=== PATIENT | female | born 1940 | race Caucasian/White ===

== ENCOUNTER 2016-11-27 08:21 | Inpatient (IN) | payer MEDICARE, BC ==
[~2016-11-27] VITALS: Ht 165.1 cm; Wt 59.7 kg
--- NOTE | ~2016-11-27 | FD ---
ADMIT: 11/27/2016 RM/LOC: 426 [facility] MR#: [id number] [address] [address] HAO OSORIO [address] [place] [id number] Final Diagnosis SEX: F AGE: 76 : 1940 ADMISSION DATE: 11/27/2016 DISCHARGE DATE: 11/28/2016 Looks like she was inpatient November 27 to November 28. FINAL DIAGNOSES: 1. Acute vasovagal syncope. 2. Sinus bradycardia. Kishor Mas MD/ keyon JOB #: [id number] CC: Kishor Mas MD, Attending Physician Kishor Mas MD, Family Physician
--- NOTE | ~2016-11-27 | ECH ---
Transthoracic Echocardiography Report (TTE) Demographics Patient Name HAO OSORIO Date of Study 11/27/2016 Patient Number [id number] Visit Number [id number] Date of 1940 Room Number 426 Accession Number [id number] Gender Female Age 76 year(s) Referring Tg Cherry MD Youth Director Tosin Allan [facility] Physician Physician Interpreting Hermes Chang Customer Sales Distributor Physician Supervising Ordering Physician Hermes Chang MD/CARTER DAVISON Nurse Stress Chrome Tanning Drum Operator Conclusions Summary Technically fair exam. The estimated left ventricular ejection fraction is 55%. Mild left ventricular hypertrophy. Diastolic assessment reveals Grade I diastolic dysfunction. No significant valvular abnormalities. Procedure Type of Study TTE procedure:Echo Complete SF. Procedure Date Date: 11/27/2016 Start: 03:04 PM Technical Quality: Adequate visualization Indications:Symptomatic Bradycardia and Syncope. Appropriate Use Criteria: 9 Height: 65 inches Weight: 132 pounds BSA: 1.66 m Rhythm: Sinus bradycardia HR: 43 bpm BP: 155/62 mmHg M-Mode/2D Measurements LV Diastolic Dimension: 3.76 cm LV Systolic Dimension: 1.91 cm LV Septum Diastolic: 1.11 cm LV PW Diastolic: 1 cm AO Root Dimension: 2.28 cm Cardiac Output: 2.32 l/min LA Dimension: 3.16 cm Cardiac Index: 1.4 l/min*m RV Diastolic Dimension: 3 cm LA volume index: 29 ml/m LVOT: 1.75 cm LVOT VTI: 22.46 cm RV Base: 3.68 cm LV Stroke volume: 54 ml RV Mid: 2.1 cm LV Stroke volume index: 32.53 ml/m RV Length: 5.19 cm TAPSE: 2.6 cm Doppler Measurements AV Mean Gradient: 3.38 mmHg MV Peak E-Wave: 0.74 m/s LVOT Peak Velocity: 0.82 m/s MV Peak A-Wave: 0.88 m/s AV Area (Continuity):1.81 cm MV P1/2t: 72.4 msec TR Velocity:2.27 m/s TR Gradient:20.61 mmHg MV Deceleration Time: 249.5 msec Estimated RAP:3 mmHg MV Area (PHT): 3.04 cm Estimated RVSP: 24 mmHg PV Peak Velocity: 0.78 m/s PV Peak Gradient: 2.4 mmHg Estimated PASP: 23.61 mmHg RA Area: 15.02 cm Findings Left Ventricle The left ventricle is normal in size . Mild left ventricular hypertrophy. Diastolic assessment reveals Grade I diastolic dysfunction. Right Ventricle Normal right ventricle structure and function. Left Atrium Normal left atrial size. Right Atrium Normal right atrial size. Mitral Valve Mild thickening of the mitral valve leaflets. Trivial mitral regurgitation by color Doppler. Aortic Valve The aortic valve is mildly sclerotic. Tricuspid Valve Normal appearing tricuspid valve. Trivial tricuspid regurgitation by color Doppler. Estimated pulmonary pressures within normal limits. Pulmonic Valve Normal pulmonic valve structure and function. Pericardial Effusion No evidence of pericardial effusion. Miscellaneous Visualized portions of the aortic root and ascending aorta appear normal in size. Pleural Effusion No evidence of pleural effusion. Contractility Score LV regional wall motion:(0-Non visualized 1-Normal 2-Hypokinesis 3-Akinesis 4-Dyskinesis 5-Aneurysm) Signature
--- NOTE | 2016-11-27 18:19 | HP ---
ADMIT: 11/27/2016 RM/LOC: 426 [facility] MR#: [id number] [address] [address] HAO OSORIO [address] [place] [address] History and Physical SEX: F AGE: 76 : 1940 DATE OF SERVICE: 11/27/2016 CHIEF COMPLAINT AND HISTORY OF PRESENT ILLNESS: Hao is a 76-year-old female in good health, who went to druze this morning. [facility] and then she prayed the Rosary with her group afterward, during this period, she felt hot and then eventually had a syncopal spell. I do not have any witnesses at the scene. It is unclear exactly how long she was out. She thinks it was probably just a minute or two. No seizure activity was reported, and this is first she has ever had a syncopal spell. She says, she felt fine yesterday and this morning when she got up, although for some reason, she did not eat breakfast. She also felt a little bit of tingling in her left arm intermittently, mostly when she lays on the arm over the last couple days, but none currently. Once again, she was alert and coherent when the ambulance came to take her to the hospital and has been since she got to the hospital. Dr. Mi evaluated her with CT of the head, and various laboratory studies, 12-lead EKG among others. She did have sinus bradycardia as low as 40s on her EKG and monitor, but otherwise no significant changes on her EKG. She was not in heart block. Orthostatics were okay. She was treated with some aspirin in the Emergency Department, and I was called to see her. Once again, she has never had syncope before. No cardiac history either. PAST MEDICAL HISTORY: Chronic problems include dyslipidemia for which she has been on Lipitor for several months. No cardiac history. No hypertension history. No stroke history. Also, history of osteopenia. SOCIAL HISTORY: She is . Retired. Accompanied by her and her daughter. She does not smoke. Alcohol intake is minimal to none. FAMILY HISTORY: Her mother at an elderly age presumably of pneumonia. No known family history of cardiac issues. ALLERGIES INTOLERANCES: 1. Bactrim causes intestinal disturbance. 2. Cipro causes intestinal disturbances. MEDICATIONS: She takes various ulpa-qyf-dnsgeyi supplements including; 1. Calcium. 2. Vitamin C. 3. Vitamin E. 4. Vitamin B. 5. Ferrous sulfate. 6. Fish oil. 7. Flaxseed oil. 8. Glucosamine. 9. Lutein. 10.Magnesium. 11.Finally, she is on Lipitor once a day. 12.Lastly, she got an recent eye drops from Dr. Torres. She is vague on the details. She has never had a diagnosis of glaucoma. We are going to ADMIT: 11/27/2016 RM/LOC: 426 [facility] MR#: [id number] [address] [place] [id number] HAO OSORIO [address] [place] [address] History and Physical SEX: F AGE: 76 : 1940 check and see if that eye drop has any beta-anita medication in it. REVIEW OF SYSTEMS: CONSTITUTIONAL: No fever, no chills. NEURO: No other focal neurologic symptoms other than those mentioned. PSYCH: Negative. CV: No chest pain. RESPIRATORY: Not short of breath or coughing. ENT: No acute ear, nose, or throat complaints. EYES: Some type of visual difficulties. PHYSICAL EXAMINATION: GENERAL: She is comfortable in the [facility] where we examined her. Appears in no distress. She is alert and oriented in no distress. VITAL SIGNS: Most recent blood pressure 143/71, O2 saturation 95%, respirations 16, heart rate vital shows 62, I then watched in the monitor and it varies from 45 up to 60. We did orthostatic vital signs and they were not significantly different. She has been afebrile as well. ENT: TMs are clear. Hearing normal. Oral mucous membranes are moist. No oral lesions noted. No nasal discharge noted. She has dentures. NECK: No masses or tenderness or enlarged thyroid or carotid bruits. HEART: Regular rhythm without murmur or gallop. LUNGS: Clear anterior and posterior. ABDOMEN: Nontender. No masses felt. PELVIC, RECTAL, AND BREAST: Exams not performed. BACK: Nontender to exam. EXTREMITIES: Upper extremities, normal appearance. Lower extremities also grossly normal without edema, and I can feel good pulses in her feet. NEURO: No focal loss of strength in arms legs or face. She is not aphasic. She is not dysarthric. No subjective sensory issues at this time. She is globally alert and oriented. IMPRESSION: Syncope. DISCUSSION: I do not feel comfortable sending her home. We will admit her to telemetry under observation. Encouraged to do regular activities to see if her heart rate increase. I have taken liberty of asking Cardiology to review the case and ordering a transthoracic echocardiogram. Uncertain at this point the significance of the bradycardia. She is not in heart block, so this still all could have been a simple vasovagal faint, and discussed that with Hao and her family. Kishor Mas MD/ keyon JOB #: [id number] CC: Kishor Mas, Attending Physician ADMIT: 11/27/2016 RM/LOC: 426 [facility] MR#: [id number] [address] [place] [phone] HAO OSORIO [address] [place] [address] History and Physical SEX: F AGE: 76 : 1940 [facility], Family Physician
--- NOTE | 2016-11-28 08:10 | ER ---
ADMIT: 11/27/2016 RM/LOC: ER [facility] MR#: [id number] [address] [address] HAO OSORIO [address] [place] [address] Emergency Room Report SEX: F AGE: 76 : 1940 DATE: 11/27/2016 ADDENDUM: See T-sheet for complete H and P. The patient is a 76-year-old female, who comes in by EMS after she had a syncopal episode while at [employer]. She does not remember the event and bystanders apparently report that she passed out for several seconds. She did not note any seizure activity. She has no history of syncopal episodes or seizures in the past. She states prior to passing out, she did notice she felt little flushed. She otherwise felt fine this morning other than some slight tingling/numbness sensation in her left arm, which she states she thought was from lying on her arm this morning in bed. I worked her up in the ER, and we had a normal head CT. CBC showed a white count of 3.8 with platelets of 137. Chemistries are normal. Troponin was normal. An EKG did show sinus bradycardia otherwise unremarkable. HOSPITAL COURSE: We checked orthostatics and they were fine and urinalysis was fine. Later in her stay, she did state that she might have some slight sensation of tingling or heaviness in her left arm and a funny sensation left side of her head. She was given aspirin in the emergency department and at this point, I am uncomfortable discharging the patient home with her bradycardia, which could have been the cause for syncopal episode these strange paresthesias in the left side of her body. I spoke to Dr. Mas who is her primary care physician, who will be seeing the patient in the ER and admitting her for further workup. DIAGNOSES: She is admitted in stable condition with diagnoses of: 1. Syncopal episode. 2. Symptomatic bradycardia. 3. Left-sided paresthesias. Aramis Mi MD/ keyon JOB #: [id number] CC: Aramis Mi MD, Attending Physician UNKNOWN, Family Physician
[2016-11-28] MEDS ORDERED: LIPITOR DPS10 MG PO (19:59)
[2016-11-28] MEDS ORDERED: MAGNESIUM250 MG PO (19:59)
[2016-11-28] MEDS ORDERED: OMEGA-3 DPS1000 MG PO (19:59)
[2016-11-28] MEDS ORDERED: CALTRATE-600 D600 MG PO (19:59)
[2016-11-28] MEDS ORDERED: ASCORBIC ACID500 MG PO (19:59)
[2016-11-28] MEDS ORDERED: FEOSOL-DPS325 MG PO (20:00)
[2016-11-28] MEDS ORDERED: VITAMIN B-12500 MCG PO (20:00)
[2016-11-28] MEDS ORDERED: VITAMIN E400 UNIT PO (20:00)
[2016-11-28] MEDS ORDERED: THERA1 EACH PO (20:00)
[2016-11-28] MEDS ORDERED: TYLENOL DPS325 MG PO (20:01)
--- NOTE | 2016-12-19 10:38 | CO ---
ADMIT: 11/27/2016 RM/LOC: 426 [facility] MR#: [id number] 2620 [facility] [address] [place] [phone] HAO OSORIO [address] [place] [address] Consultation SEX: F AGE: 76 : 1940 DATE OF CONSULTATION: 11/27/2016 ATTENDING PHYSICIAN: Kishor Mas CONSULTING PHYSICIAN: Kal Mirza MD CHIEF COMPLAINT: Syncope. HISTORY OF PRESENT ILLNESS: Hao is a very pleasant 76-year-old female, who reports that she was at mass this morning when she had an episode of syncope. She states that she awoke this morning feeling well and did not notice any symptoms during mass. After mass when she went to [facility] for her rosary, she had a sudden hot flash and then lost consciousness. Bystanders report that she was unconscious for a matter of seconds before regaining consciousness. She denies any symptoms following the loss of consciousness and has been asymptomatic since she presented to the emergency room. She denies any history of prior loss of consciousness. She did not sustain any injuries with the syncope. In the emergency room, she did undergo a head CT, which was normal. Lab work was also normal including CBC, CMP, and urinalysis and troponin. She was noted to have sinus bradycardia which has been her baseline for at least a few years. PAST MEDICAL HISTORY: 1. Sinus bradycardia. 2. Dyslipidemia. 3. Osteopenia. 4. Solitary pulmonary nodule with serial CAT scans without change. 5. Chronic anal fissure. PAST SURGICAL HISTORY: Multiple ocular surgeries for macular degeneration and detached retina. MEDICATIONS: 1. Calcium 1250 mg p.o. daily. 2. Vitamin C 500 mg p.o. daily. 3. Vitamin E 400 units p.o. daily. 4. Vitamin B12 of 500 mcg p.o. daily. 5. Ferrous sulfate 325 mg p.o. 3 times weekly. 6. Fish oil 1000 mg p.o. daily. 7. Flaxseed oil 1 tab p.o. daily. 8. Glucosamine chondroitin 250/200 mg one tab p.o. daily. 9. Lutein 20 mg capsule 1 tab p.o. daily. 10.Magnesium 200 mg p.o. daily. 11.Multivitamin 1 tab p.o. daily. 12.Combigan eyedrops. ALLERGIES: BACTRIM, CIPROFLOXACIN, AND SOY. FAMILY HISTORY: The patient reports that her father from Alzheimer's ADMIT: 11/27/2016 RM/LOC: 426 [facility] MR#: [id number] [address] [address] [facility] [address] [place] [address] Consultation SEX: F AGE: 76 : 1940 disease and her mother at age 92 from pneumonia, but did have cardiomegaly and heart failure. SOCIAL HISTORY: The patient is , she will be for 55 years tomorrow with 4 children. Her hobbies include walking and her daughter reports that she walks multiple miles daily. She is a never smoker and does not drink alcohol. REVIEW OF SYSTEMS: GENERAL: Denies fatigue, fever, chills, sweats, rash, or weight loss. EYES: Denies double vision, blurred vision, cataracts, or glaucoma. ENT: Denies hearing loss or problems with nose, mouth or throat. PULMONARY: Denies cough, sputum production, asthma, emphysema or bronchitis. Denies snoring loudly, wakefulness at night, or fatigue upon awakening. GASTROINTESTINAL: Denies heartburn or difficulty swallowing. No change in bowel habits. Denies dark or bloody stools. No history of ulcers, hiatal hernia, or gallbladder or liver disease. GENITOURINARY: Denies dysuria, hematuria, nocturia, urinary tract infection, or kidney stones. Denies history of renal insufficiency or failure. MUSCULOSKELETAL: Denies history of arthritis or gout. Denies muscle or joint pains. ENDOCRINE: Denies history of thyroid dysfunction or diabetes. HEMATOLOGIC: Denies history of anemia, easy bruising, or cancer. NEUROLOGIC: Denies chronic headaches, dizziness, stroke, seizures or numbness or tingling. Episode of syncope. PSYCHIATRIC: Denies history of mental illness or feelings of depression. PHYSICAL EXAMINATION: VITAL SIGNS: Pulse 46, blood pressure 165/62, respiratory rate 16, SpO2 of 100% on room air, and temperature 98.2. SKIN: [place], warm and dry. EYES: Sclerae clear. No xanthelasmas. ENT: Oral mucosa is pink and moist. No jugular venous distention or carotid bruits. CHEST: Respirations are even and unlabored. Lungs are clear to auscultation. HEART: Regular rate and rhythm. Normal S1, S2. No murmurs, rubs or gallops. ABDOMEN: Soft and nontender. MUSCULOSKELETAL: Gait is normal. EXTREMITIES: Peripheral pulses palpable. No clubbing, cyanosis or edema. PSYCHIATRIC: Alert and oriented. Mood and affect are appropriate. OBJECTIVE DATA: WBC 3.8, HGB 12.6, and PLT 137. Creatinine 0.7, potassium 4.0, and magnesium 2.3. Troponin less than 0.015. UA normal. Head CT normal. EKG normal sinus rhythm at 48 beats per minute. ADMIT: 11/27/2016 RM/LOC: 426 [facility] MR#: [id number] [address] [place] [phone] HAO OSORIO [address] [place] [address] Consultation SEX: F AGE: 76 : 1940 ASSESSMENT: 1. Probable vasovagal syncope. 2. History of sinus bradycardia. 3. Hyperlipidemia. PLAN: The patient has sinus bradycardia but no other evidence of conduction delay on EKG. Symptoms sound most consistent with a vasovagal or neurocardiogenic etiology. We will monitor overnight on telemetry. We will order an echocardiogram. I asked the patient to ambulate in the hallways so that we can monitor heart rate with activity. If stable overnight, plan to discharge tomorrow morning with a Zio patch in place. Yudy Luna MD Resident / Kal Mirza MD / keyon JOB #: [id number] CC: Kishor Mas, Attending Physician Kisohr Mas, Family Physician
== END 2016-11-28 13:20 | disposition home or self-care (01) | DRG 312 ==
LOC: ER 08:21 → 4PCU 12:00
PROVIDERS: ADMIT Family Medicine
DX: R55 Syncope and collapse (principal); R00.1 Bradycardia, unspecified; E78.5 Hyperlipidemia, unspecified; M85.80 Other specified disorders of bone density and structure, unspecified site; R91.1 Solitary pulmonary nodule; K60.1 Chronic anal fissure